=== PATIENT | female | born 1975 | race Caucasian/White ===

== ENCOUNTER → 2024-12-15 13:53 | Outpatient (REF) | payer BC, SELFPAY | LOC: WDC 13:53 | PROVIDERS: ATTENDING PHYSICIAN Advanced Practice Midwife | DX: Z12.31 Encounter for screening mammogram for malignant neoplasm of breast (principal) | CPT/HCPCS: 77063; 77067 ==

== ENCOUNTER 2025-05-30 09:46 | Emergency (ER) | payer BC, SELFPAY ==
[2025-05-30] VITALS (11 sets, daily range): BP systolic 100–135; BP diastolic 78–100; PULSE 80–100; BMI 26.5
--- NOTE | 2025-05-30 10:04 | ED.GENMED ---
History of Present Illness
General
Chief Complaint: Chest Pain
Source: patient
Exam Limitations: none
Time Seen by Provider: 05/30/25 10:02
Nursing documentation reviewed up to this point in time: agreed with
History of Present Illness
History of Present Illness:
49-year-old female presents to the ER for evaluation. Patient has had chest tightness for months. She reports that she has a chronic chest tightness and heaviness. She reports she wakes up with that she goes to sleep with the. Recently however
for the past 6 months she has felt very lightheaded. This morning she woke up and felt extremely lightheaded her legs felt weak which is what prompted her to come to the ER. She does have a history of anxiety and was evaluated for this chest
tightness by her family doctor recently. She attributed this to anxiety and started her on Prozac about 5 days ago. She is actually scheduled to see cardiology [facility] cardiology tomorrow morning. She used to be on antidepressants and
antianxiety medicine years ago however for the past several years has not been on them and again was recently started last week. She does not currently have a therapist that she did therapy years ago. She is not sure exactly what is triggering her
anxiety. She does have associated heart palpitations with her symptoms. She is a smoker. She has no known cardiac disease. She has no prior history of clotting disorder DVT or PE. She does sometimes feel short of breath with this. She does
report when she exercises on the treadmill which may be a couple times a month she does not get any symptoms.
She reports she did have an MRI of her braine to evaluate headaches she was having in December/January which was negative. This was ordered by her family doctor.
She has appt with [facility] cardiology tomorrow.
Past History
Past History
ED Past Medical History: None
ED Past Surgical History: Gynecological
Social History
Tobacco: Non-smoker
Personal:
Living: with family
Family History
Family History: Unable to obtain
Phy Exam
General Physical Exam
General Presentation: no apparent distress
General age: appears stated age
General Skin: warm and dry
General Habitus: normal
General Mental: alert
General Hydration: appears well hydrated
Cardiovascular Exam
Cardiovascular Exam: regular rate/rhythm, no murmur and normal peripheral pulses
Pulmonary Exam
Pulmonary Exam: lungs clear and no respiratory distress
Neurological Exam
Neurological Exam: alert and oriented x3
Musculoskeletal Exam
Musculoskeletal Exam: full ROM
Skin Exam
Skin Exam: normal color and warm/dry
Psychiatric Exam
Psychiatric Exam: normal mood/affect
Scores
Heart Score for Chest Pain Patients
STEMI patient?: Not applicable
Course
Orders/Labs/Results
Orders:
Orders
05/30/25 09:49
ECG [Electrocardiogram (*1)] Urgent
Reason for Study: Chest Pain
EKG- Treatment ONCE
05/30/25 10:24
IV Insert/Care/Rem.- Treatment PRN
05/30/25 10:36
Complete Blood Count/With Diff Urgent
Comprehensive Metabolic Panel Urgent
D-Dimer Urgent
TSH Reflex To Free T4 Urgent
Troponin I Urgent
05/30/25 12:12
DDimer [D-Dimer] Urgent
05/30/25 12:29
Chest [CR Chest - 2 Views ] Urgent
Comment:
Reason For Exam: cp
Abnormal Lab Results
05/30/25
10:36
WBC 10.9 H 10^3/uL
(4.8-10.8)
MCH 31.6 H pg
(27.0-31.0)
Absolute Neuts (auto) 7.4 H 10^3/uL
(1.4-6.5)
Absolute Monos (auto) 0.7 H 10^3/uL
(0.1-0.6)
Chloride 108 H mmol/L
(98-107)
Alkaline Phosphatase 30 L U/L
(38-126)
05/30/25 10:36
05/30/25 10:36
Vital Signs
Initial and Last Documented VS:
Initial Vital Signs
Temp Pulse Resp BP Pulse Ox
98.2 F 109 16 123/93 98
05/30/25 09:55 05/30/25 09:55 05/30/25 09:55 05/30/25 09:55 05/30/25 09:55
Last Documented Vital Signs
Temp Pulse Resp BP Pulse Ox
98.2 F 88 20 124/79 98
05/30/25 09:55 05/30/25 14:15 05/30/25 14:15 05/30/25 14:00 05/30/25 10:29
MDM/Problems Addressed
Differential Diagnosis Includes:
not limited to: acs, anxiety, dehydration electrolyte abnormality anemia
MDM/Problems Addressed:
Patient is a 49-year-old female who presents to the ER for evaluation. Patient has a history of anxiety and has had chest tightness and lightheadedness for months off-and-on. She was recently started back on Prozac. She presents because of
lightheadedness which was worse today. She has been evaluated by her family doctor for this and in fact she has a cardiology appointment with [facility] cardiology tomorrow. She presents awake alert patient was very anxious crying on exam.
Patient does smoke cigarettes however no other cardiac risk factors. Chest tightness has been going on for months. She is asymptomatic here as far as chest tightness and her cardiac troponin is unremarkable no acute findings on EKG, chest x-ray
negative D-dimer negative.
Symptoms may very well likely be anxiety however no other acute cause for patient's symptoms here in the ER. She does have follow-up with cardiology tomorrow and so she is stable for discharge home.
*Radiology
Radiology exam reviewed: radiology read reviewed
*Pulse Oximetry
SaO2: 98
Oxygen Mode of Delivery: Room air
Patient hypoxic: no
*EKG
Interpreted by ED Provider?: Yes
Comparison EKG: no changes
Heart Rate: 77
Rate: normal
Rhythm: sinus
*Critical Care Note
Total Time (30-74mins, 75-104mins- exclusive of procedures): Not Applicable
ED Attending Note
-
Portions of this chart may have been created with voice recognition software.� Occasional wrong word or��sound alike� substitutions may have occurred due to the inherent limitations of voice recognition software.
Discharge Plan
Departure
Patient Disposition: Home (Routine Discharge)
Date of Disposition: 05/30/25
Time of Disposition: 15:21
Patient with high blood pressure during this ER visit?: Yes
Condition: Fair
Covid-19: Not Applicable
Discharge Problem:
Chest tightness, Lightheadedness
Instructions: Chest Pain CBC Follow Up, BLOOD PRESSURE
Prescriptions:
No Action
ibuprofen 200 MG tablet
2 - 3 tab PO PRN (Reason: pain)
Tylenol Extra Strength
2 tab PO PRN (Reason: discomfort)
multivitamin with folic acid [Tab-A-Angel] 1 TABLET tablet
1 tab PO DAILY
Referrals:
Dina Calhoun PA-C [Family Provider, Family Practice]
Activity Restrictions/Additional Instructions:
Follow-up with cardiology as scheduled tomorrow. Rest today until seen by cardiology tomorrow. Stay well-hydrated. Return if any worsening of symptoms.
Interventions
Interventions:
*Risk Screen - Suicide Last Done: 05/30/25 09:55
*General Assessment Last Done: 05/30/25 10:06
*Neglect/Abuse Screening Last Done: 05/30/25 09:55
*ED- Fall Risk Assessment Last Done: 05/30/25 10:06
*ED COVID-19 Vaccine History Last Done: 05/30/25 10:06
*ED Influenza Vaccine History Last Done: 05/30/25 10:06
*Nursing Disposition Last Done: 05/30/25 15:33
ED- Cardiac Assessment Last Done: 05/30/25 10:06
Discharge Date and Time
Discharge Date/Time: 05/30/25 15:34
Print Language: [id number]
[2025-05-30 10:57] LABS: Hematocrit 42.1 % (37.0-47.0); Hemoglobin 14.1 g/dL (12.0-16.0); Mean Corp Hgb Conc. 33.5 g/dL (33.0-37.0); Mean Corpuscular Volume 94.4 fL (81.0-99.0); Nucleated Red Blood Cells % 0 %; Platelet Count 369 10^3/uL (130-400); Red Cell Dist. Width 11.9 % (11.5-14.5)
[2025-05-30 11:11] LABS: ALT (SGPT) 17 U/L (0-35); AST (SGOT) 19 U/L (14-36); Albumin 4.5 g/dl (3.5-5.0); Alkaline Phosphatase 30 U/L (38-126); Blood Urea Nitrogen 8 mg/dl (7-17); Calcium 10.0 mg/dl (8.4-10.2); Carbon Dioxide 22 mmol/L (22-30); Chloride 108 mmol/L (98-107); Estimated Creatinine Clearance 97 ml/min; Glucose 99 mg/dl (70-99); Potassium 4.2 mmol/L (3.5-5.1); Sodium 139 mmol/L (135-145); Total Protein 7.1 g/dl (6.3-8.2); eGFR > 60.00
[2025-05-30 11:21] LABS: Troponin I < 0.012 ng/ml
[2025-05-30 11:53] LABS: D-Dimer < 0.27 ug/mlFEU (0.00-0.50)
== END 2025-05-30 15:34 | disposition home or self-care (01) ==
LOC: EMR 09:46
PROVIDERS: Nurse Practitioner; EMERGENCY PHYSICIAN Emergency Medicine; FAMILY PHYSICIAN Physician Assistant Medical
DX: R07.89 Other chest pain (principal); F41.9 Anxiety disorder, unspecified; Z82.49 Family history of ischemic heart disease and other diseases of the circulatory system; R42 Dizziness and giddiness
CPT/HCPCS: 99283; 71046; 80053; 84443; 84484; 85025; 85379; 93005; 99285